=== PATIENT | male | born 1955 ===

== ENCOUNTER 2018-11-05 10:17 | Emergency (ER) | payer OTHER ==
[2018-11-05 10:29] VITALS: BP 166/91; PULSE 105; RESP 18; TEMP 97.8; O2SAT 99
--- NOTE | 2018-11-05 11:34 | ED PDOC ---
HPI: General Adult Time Seen by Provider: 11/05/18 11:32 Chief Complaint (Nursing): Lower Extremity Problem/Injury Chief Complaint (Provider): left foot/ankle pain History Per: Patient (63 y/o male here with ongoing left foot/ankle pain x 3 days. Denies any falls. Has had knee pain and uses crutches for right knee x 3 years. Denies any Gout/arthritis history.) Past Medical History Reviewed: Historical Data, Nursing Documentation, Vital Signs Vital Signs: Last Vital Signs Temp 97.8 F 11/05/18 10:27 Pulse 105 H 11/05/18 10:27 Resp 18 11/05/18 10:27 BP 166/91 H 11/05/18 10:27 Pulse Ox 99 11/05/18 10:27 - Family History Family History: States: No Known Family Hx - Home Medications Home Medications: Ambulatory Orders Medication Instructions Recorded Acetaminophen [Acetaminophen Extra 2 tab PO Q6 PRN #24 tablet 11/05/18 Strength] Methylprednisolone [Medrol Dose 4 mg PO DAILY #21 mg 11/05/18 Pack (21 tabs)] - Allergies Allergies/Adverse Reactions: Allergies Allergy/AdvReac Type Severity Reaction Status Date / Time shellfish derived Allergy SHORTNESS Verified 11/05/18 10:20 OF BREATH Review of Systems ROS Statement: Except As Marked, All Systems Reviewed And Found Negative Physical Exam - Reviewed Nursing Documentation Reviewed: Yes Vital Signs Reviewed: Yes - Physical Exam Appears: Positive for: Well, Non-toxic, No Acute Distress Head Exam: Positive for: ATRAUMATIC, NORMAL INSPECTION, NORMOCEPHALIC Skin: Positive for: Normal Color, Warm, DRY Eye Exam: Positive for: EOMI, Normal appearance, PERRL ENT: Positive for: Normal ENT Inspection Neck: Positive for: Normal, Painless ROM Cardiovascular/Chest: Positive for: Regular Rate, Rhythm Respiratory: Positive for: CNT, Normal Breath Sounds Gastrointestinal/Abdominal: Positive for: Normal Exam, Soft Back: Positive for: Normal Inspection Extremity: Positive for: Normal ROM, Tenderness (tenderness dorsum of right foot/ right MTP) Neurologic/Psych: Positive for: Alert, Oriented - ECG O2 Sat by Pulse Oximetry: 99 - Progress ED Course And Treament: toradol 30 mg IM xry of ankle left: no fx xry of foot left: no fx Disposition - Clinical Impression Clinical Impression: Foot pain, left - Patient ED Disposition Is Patient to be Admitted: No - Disposition Referrals: Yasmani Rodas MD [Primary Care Provider] - [facility] [Outside] Disposition: Routine/Home Disposition Time: 12:07 Condition: FAIR Prescriptions: Acetaminophen [Acetaminophen Extra Strength] 2 tab PO Q6 PRN #24 tablet PRN Reason: Pain, Moderate (4-7) Methylprednisolone [Medrol Dose Pack (21 tabs)] 4 mg PO DAILY #21 mg Instructions: Muscle and Bone Pain (DC), Lifestyle Changes to Manage Gout, Gout (DC) Forms: [facility] ED School/Work Excuse Print Language: ROMANIAN
--- NOTE | 2018-11-05 12:37 | RAD ---
Date of service: 11/05/2018 PROCEDURE: Left Foot Radiographs. HISTORY: foot pain COMPARISON: None. FINDINGS: BONES: No fracture seen. 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 OTHER FINDINGS: None. 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 No fracture or lytic lesions noted
--- NOTE | 2018-11-05 12:39 | RAD ---
Date of service: 11/05/2018 PROCEDURE: Left Ankle Radiographs. HISTORY: routine COMPARISON: None available. FINDINGS: BONES: No fracture or lytic lesion. Some mild inferior medial malleolar cortical hyperostoses spurring degenerative changes here inferred. JOINTS: Anterior inferior tibial spurring-tibiotalar joint arthrosis suggested. Ankle mortise maintained. Talar dome intact SOFT TISSUES: The lateral perimalleolar soft tissues are asymmetrically prominent. Correlate clinically no history of trauma. OTHER FINDINGS: None. IMPRESSION: No fracture or lytic lesion. Mild degenerative changes including anterior tibiotalar spurring/arthrosis
== END 2018-11-05 12:37 | disposition home or self-care (01) ==
LOC: SUPCPDRO 10:17 → H.ER 10:17
DX: M79.672 Pain in left foot (principal)
CPT/HCPCS: 73610; 73630; 96372; 99283; J1885